=== PATIENT | male | born 1955 | race Caucasian/White ===

== ENCOUNTER → 2021-01-25 | Outpatient (CLI) | payer OTHER ==
[~2021-01-25] MED LIST: CIPRO 500MG TA500 MG PO; COLACE 100100 MG/CAP PO; FLOMAX 0.40.4 MG/CAP PO; LEVAQUIN 5500 MG/TA1 PO; LEVSIN0.125 M1 PO; LORTAB 7.5/5001 TAB PO; MAGNESIA C1.75 GM/30 PO; NORCO 325 MG-51 TAB PO; PERCOCET 325 MG1 TA2 PO; ROXICODONE 55 MG/TAB PO; ZOFRAN 4MG T4 MG/TAB PO
== END ==
LOC: COL.RAD 10:57
DX: N20.0 Calculus of kidney (principal); K83.1 Obstruction of bile duct; R59.0 Localized enlarged lymph nodes
CPT/HCPCS: Q9967

== ENCOUNTER 2021-01-28 10:42 | Day surgery (SDC) | payer OTHER ==
[~2021-01-28] VITALS: Ht 180.3 cm; Wt 76.6 kg
[~2021-01-28 10:42] MED LIST changes: -LEVAQUIN 5500 MG/TA1 PO; -ROXICODONE 55 MG/TAB PO; -ZOFRAN 4MG T4 MG/TAB PO
[2021-01-28 11:53] VITALS: BP 106/72; PULSE 62; TEMP 98.4
[2021-01-28] MEDS ORDERED: ROXICODONE 55 MG/TAB PO (11:55)
[2021-01-28] MEDS ORDERED: LEVAQUIN 5500 MG/TA1 PO (11:55)
[2021-01-28] MEDS ORDERED: ZOFRAN 4MG T4 MG/TAB PO (11:56)
[2021-01-28 13:00] VITALS: BP 93/70; PULSE 60
[2021-01-28 13:15] VITALS: BP 123/76; PULSE 85; TEMP 98.2
--- NOTE | 2021-01-28 13:15 | NUR ---
Report recieved from ASHLEY Tomlin. Patient transferred to [facility] [place] [address] via [address] along. Patient reports feeling well. Sprite tolerated well by patient.
[2021-01-28 13:30] VITALS: BP 128/73; PULSE 77
--- NOTE | 2021-01-28 13:30 | NUR ---
Patient reports doing well. No complaint of pain at this time. Tolerated drink with no nausea or pain.
[2021-01-28 13:45] VITALS: BP 110/72; PULSE 66
[2021-01-28 14:00] VITALS: BP 105/71; PULSE 82
--- NOTE | 2021-01-28 14:00 | NUR ---
Patient reports doing well. No complaint of pain at this time.
--- NOTE | 2021-01-28 14:15 | NUR ---
Went through discharge instructions with patient and . Questions answered. Patient verbalized understanding to education.
--- NOTE | 2021-01-28 14:39 | NUR ---
Patient escorted to emergency department entrance and got into personal vehicle with . Patient left in the care of his .
== END 2021-01-28 14:40 | disposition home or self-care (01) ==
LOC: SDCO 10:42
DX: K83.1 Obstruction of bile duct (principal); K83.8 Other specified diseases of biliary tract; K75.9 Inflammatory liver disease, unspecified; Z85.828 Personal history of other malignant neoplasm of skin; K21.9 Gastro-esophageal reflux disease without esophagitis
CPT/HCPCS: C1769; C2625; J2704; J7030; Q9967